=== PATIENT | female | born 1965 | race Caucasian/White ===

== ENCOUNTER 2023-03-30 22:22 | Inpatient (IN) | payer SELFPAY ==
[2023-03-30] MEDS ORDERED: Famotidine/PF 20 mg/2ml Vial ONE (23:10)
[2023-03-30] MEDS ORDERED: Thiamine HCl 200 MG/2 ML VIAL ONE (23:10)
[2023-03-30 23:15] LABS: #Eosinphils 0.1 thou/uL (0.0-0.7); #Monocytes 0.2 thou/uL (0.11-0.59); #Neutrophils 3.1 thou/uL (1.40-6.50); %Basophils 0.5 % (0.0-1.0); %Lymphocytes 42.2 % (21.0-51.0); %Monocytes 3.7 % (0.0-10.0); %Neutrophils 51.4 % (42.0-75.0); Hematocrit 45.5 % (36.0-47.0); Hemoglobin 15.7 g/dL (12.0-16.0); Mean Corpuscular HGB CONC 34.5 g/dL (32.0-36.0); Mean Corpuscular Volume 89.9 fl (78.0-98.0); Mean Platelet Volume 9.3 fL (7.4-10.4); Platelet Count 293 10x3/uL (130-400); RBC Distribution Width 12.9 % (11.5-14.5); Red Blood Cell (RBC) Count 5.06 mill/uL (4.20-5.40); White Blood Cell (WBC) Count 5.9 10x3/uL (4.8-10.8)
[2023-03-30 23:46] LABS: Acetaminophen Less than 10 mcg/mL (10.0-30.0); Alcohol 324.7 mg/dL (Less than 10); Lipase 73 U/L (8-78); Magnesium 2.1 mg/dL (1.6-2.6); Salicylate Less than 8.0 mg/dL (15.0-30.0)
[2023-03-30 23:48] LABS: ALT (SGPT) 35 U/L (8-55); AST (SGOT) 60 U/L (5-34); Albumin 5.7 g/dL (3.5-5.0); Alkaline Phosphatase 93 U/L (40-110); Anion Gap 26 mmol/L (10-20); BUN (Urea Nitrogen) 8 mg/dL (9.8-20.1); Bilirubin, Total 0.8 mg/dL (0.2-1.2); Calc. Creatinine Clearance 0 mL/min (70-130); Calcium 10.2 mg/dL (7.8-10.44); Carbon Dioxide 20 mmol/L (22-29); Chloride 94 mmol/L (98-107); Estimated GFR 84; Globulin 4.1 g/dL (2.4-3.5); Glucose 85 mg/dL (70-105); Potassium 4.5 mmol/L (3.5-5.1); Protein, Total 9.8 g/dL (6.0-8.3); Sodium 135 mmol/L (136-145)
[2023-03-31 00:38] LABS: Actual Bicarbonate (HCO3v) 19.8 mEq/L (22-28); Base Excess -6.4 mEq/L (-2.0 to +3.0); Calcium, Ionized (venous) 1.06 mmol/L (1.16-1.32); Chloride (VBG) 94 mmol/L (98-106); Hematocrit-VBG 45 % (36.0-47.0); Hemoglobin (Hb) 15.2 g/dL (11.7-16.0); Sodium 144 mmol/L (133-146); pH (venous) 7.291 (7.32-7.43)
[2023-03-31] MEDS ORDERED: Ondansetron PF 4 MG/2 ML Vial IVP PRN (01:21)
[2023-03-31] MEDS ORDERED: Lorazepam 1 MG TAB PO PRN (01:21)
[2023-03-31] MEDS ORDERED: Lorazepam 2 MG/ML VIAL IM PRN (01:21)
[2023-03-31] MEDS ORDERED: Lactated Ringer's 1,000 ML IV SCH (01:30)
[2023-03-31] MEDS ORDERED: Electrolyte Replacement Protocol 1 EACH FS SCH (01:30)
[2023-03-31 02:42] VITALS: BMI 23.1
[2023-03-31 03:12] LABS: Amphetamine Not Detected (NotDetected); Barbiturates Screen Not Detected (NotDetected); Benzodiazepine Screen Not Detected (NotDetected); Cocaine Metabolite Screen Not Detected (NotDetected); Methadone Not Detected (NotDetected); Methamphetamine Not Detected (NotDetected); Opiate Screen Not Detected (NotDetected); Oxycodone Screen Not Detected (NotDetected); Phencyclidine (PCP) Not Detected (NotDetected); THC/Cannabinoid Screen Not Detected (NotDetected); Tricyclic Screen Not Detected (NotDetected)
[2023-03-31] MEDS: Lactated Ringer's 1,000 ML IV SCH ×3 (03:13→18:06)
[2023-03-31] MEDS: Lorazepam 1 MG TAB PO SCH ×4 (03:14→18:08)
[2023-03-31] MEDS: Thiamine HCl 200 MG/2 ML VIAL SLOW IVP SCH (03:14)
[2023-03-31 04:46] LABS: #Monocytes 0.6 thou/uL (0.11-0.59); #Neutrophils 5.5 thou/uL (1.40-6.50); %Basophils 0.4 % (0.0-1.0); %Eosinophils 0.1 % (0.0-10.0); %Lymphocytes 27.2 % (21.0-51.0); %Monocytes 6.7 % (0.0-10.0); %Neutrophils 65.4 % (42.0-75.0); Hematocrit 41.9 % (36.0-47.0); Hemoglobin 14.1 g/dL (12.0-16.0); Mean Corpuscular HGB CONC 33.7 g/dL (32.0-36.0); Mean Corpuscular Hemoglobin 30.6 pg (27.0-31.0); Mean Corpuscular Volume 90.9 fl (78.0-98.0); Mean Platelet Volume 10.1 fL (7.4-10.4); Platelet Count 253 10x3/uL (130-400); Red Blood Cell (RBC) Count 4.61 mill/uL (4.20-5.40); White Blood Cell (WBC) Count 8.4 10x3/uL (4.8-10.8)
[2023-03-31 05:06] LABS: Lactic Acid 5.3 mmol/L (0.5-2.2)
[2023-03-31 05:10] LABS: ALT (SGPT) 30 U/L (8-55); AST (SGOT) 49 U/L (5-34); Albumin 4.5 g/dL (3.5-5.0); Alkaline Phosphatase 75 U/L (40-110); Anion Gap 22 mmol/L (10-20); BUN (Urea Nitrogen) 7 mg/dL (9.8-20.1); Bilirubin, Total 0.9 mg/dL (0.2-1.2); Calc. Creatinine Clearance 97 mL/min (70-130); Calcium 9.1 mg/dL (7.8-10.44); Carbon Dioxide 23 mmol/L (22-29); Chloride 99 mmol/L (98-107); Estimated GFR 102; Globulin 3.5 g/dL (2.4-3.5); Glucose 76 mg/dL (70-105); Potassium 4.2 mmol/L (3.5-5.1); Sodium 140 mmol/L (136-145)
[2023-03-31] MEDS: Folic Acid 1 MG TAB PO SCH (09:11)
[2023-03-31] MEDS: Acetaminophen 325 MG TAB PO PRN ×2 (09:11→18:08)
[2023-03-31] MEDS: Multivit, Therapeutic 1 TAB PO SCH (09:12)
[2023-03-31 09:28] LABS: Lactic Acid 3.1 mmol/L (0.5-2.2)
[2023-03-31] MEDS ORDERED: Promethazine HCl 25 MG in Sodium Chloride 0.9% 50 ML IVPB PRN (10:40)
[2023-03-31] MEDS: Acyclovir 400 mg Tablet PO SCH (11:46)
[2023-03-31 12:22] LABS: Syphilis Antibody Nonreactive (Nonreactive); Syphilis Antibody Index 0.06 S/CO (<1.00 Non-Reactive)
[2023-03-31 13:07] LABS: Bacteria/HPF 2+ HPF (None Seen); Bilirubin Negative (Negative); Blood, Urine Trace (Negative); CAUTI Indications for Culture Dysuria,urgency,freq; Clarity Clear (Clear); Glucose, Urine (Dipstick) Normal (Negative); Ketone, Urine 40 mg/dL (Negative); Leukocyte 500 Leu/uL (Negative); Nitrite Negative (Negative); Protein, Urine (Dipstick) 30 mg/dL (Neg-Trace); RBC/HPF 0-3 HPF (0-3); Specific Gravity, Urine 1.022 (1.002-1.036); Squamous Epithelial 0-3 HPF (0-3); Urobilinogen Normal mg/dL (Less than 2); WBC/HPF Greater than 50 HPF (0-3)
[2023-03-31 13:12] LABS: Urine Culture Reflex Yes Yes
[2023-03-31] MEDS ORDERED: SODIUM CHLORIDE IVPB SCH (14:00)
[2023-03-31] MEDS ORDERED: ADMIXTURE FEE IVPB SCH (14:00)
[2023-03-31] MEDS ORDERED: CHLORPROMAZINE HCL IVPB SCH (14:00)
[2023-03-31] MEDS: Cefepime 2 GM in Sodium Chloride 0.9% 100 ML IVPB SCH (16:27)
[2023-04-01] MEDS ORDERED: Lorazepam 1 MG TAB PO PRN (01:21)
[2023-04-01] MEDS: Thiamine HCl 200 MG/2 ML VIAL SLOW IVP SCH (01:54)
[2023-04-01] MEDS: Cefepime 2 GM in Sodium Chloride 0.9% 100 ML IVPB SCH ×2 (01:54→12:42)
[2023-04-01] MEDS: Lactated Ringer's 1,000 ML IV SCH ×2 (01:54→09:41)
[2023-04-01] MEDS: Lorazepam 1 MG TAB PO SCH ×3 (02:02→12:42)
[2023-04-01] MEDS: Multivit, Therapeutic 1 TAB PO SCH (09:40)
[2023-04-01] MEDS: Folic Acid 1 MG TAB PO SCH (09:40)
[2023-04-01] MEDS: Acyclovir 400 mg Tablet PO SCH (09:40)
[2023-04-01 11:16] VITALS: BP 162/100; TEMP 98.7
[2023-04-02] MEDS ORDERED: Lorazepam 1 MG TAB PO PRN (01:21)
[2023-04-02] MEDS ORDERED: Lorazepam 0.5 MG TAB PO SCH (01:30)
[2023-04-03] MEDS ORDERED: Lorazepam 0.5 MG TAB PO PRN (01:21)
[2023-04-03] MEDS ORDERED: Thiamine 100 MG TAB PO SCH (09:00)
== END 2023-04-01 13:25 | disposition home or self-care (01) | DRG 897 ==
LOC: ERS 22:22 → 2NO 03-31 01:27
PROVIDERS: ADMIT Student in an Organized Health Care Education/Training Program; ATTEND Internal Medicine
DX: F10.129 Alcohol abuse with intoxication, unspecified (principal); E87.29 Other acidosis; N39.0 Urinary tract infection, site not specified; F43.10 Post-traumatic stress disorder, unspecified; Z88.8 Allergy status to other drugs, medicaments and biological substances; F39 Unspecified mood [affective] disorder; B00.9 Herpesviral infection, unspecified; E88.89 Other specified metabolic disorders
CPT/HCPCS: 36415; 80053; 80306; 80307; 81001; 82010; 82805; 83605; 83690; 83735; 84100; 85025; 86780; 87077; 87086; 93005; 96361; 96365; 96375; J0692; J1650; J2405; J3230; J3411; J3490; J7120; S0028